=== PATIENT | male | born 1995 | race Caucasian/White ===

== ENCOUNTER 2017-01-21 16:53 | Emergency (ER) | payer OTHER ==
[~2017-01-21] VITALS: Ht 190.5 cm; Wt 82.9 kg
[2017-01-21] MEDS ORDERED: bp med PO (18:10)
[2017-01-21] MEDS ORDERED: ASPI-515 PO (18:10)
[2017-01-21 18:19] LABS: HEMATOCRIT 44.9 % (39.2-51.8); HEMOGLOBIN 15.4 g/dL (13.7-18.0); WHITE BLOOD COUNT 5.2 x10^3/uL (3.4-10)
[2017-01-21 18:29] LABS: BLOOD UREA NITROGEN 20 mg/dL (7-18)
[2017-01-21] MEDS ORDERED: OMNIPAQUE 350 MG/ML, 150 ML BOTTLE ONE (19:48)
[2017-01-21 20:13] VITALS: BP 129/72
== END 2017-01-21 20:43 | disposition home or self-care (01) ==
LOC: ED 18:11
DX: R51 Headache (principal)
CPT/HCPCS: 36415; 70496; 70498; 71275; 80048; 82040; 85025; 85610; 85730; 93005; 99285; Q9967

== ENCOUNTER 2017-04-11 11:12 | Inpatient (IN) | payer OTHER ==
[2017-04-08 14:32] LABS: HEMATOCRIT 47.8 % (39.2-51.8); HEMOGLOBIN 16.9 g/dL (13.7-18.0); WHITE BLOOD COUNT 4.4 x10^3/uL (3.4-10)
[2017-04-08 14:43] LABS: ASPARTATE AMINO TRANSFERASE 15 U/L (15-37); BLOOD UREA NITROGEN 18 mg/dL (7-18)
[~2017-04-11] VITALS: Ht 190.5 cm; Wt 84.3 kg
[~2017-04-11 11:12] MED LIST: ASPI-515 PO; LISI2.5T PO; METO25TA35 PO; MULT-224 PO; bp med PO
[2017-04-11 12:40] VITALS: BP 117/76
[2017-04-11] MEDS ORDERED: CEFUROXIME 1.5 GM in SODIUM CHLORIDE 0.9% 50 ML IVPB PRN (13:00)
[2017-04-11] MEDS ORDERED: PHENYLEPHRINE 10 MG in SODIUM CHLORIDE 0.9% 249 ML IV PRN (13:00)
[2017-04-11] MEDS ORDERED: MANNITOL PMX 20% 500 ML IVPB PRN (13:00)
[2017-04-11] MEDS ORDERED: VANCOMYCIN 1,250 MG in SODIUM CHLORIDE 0.9% 250 ML IV PRN (13:00)
[2017-04-11] MEDS ORDERED: DEXMEDETOMIDINE 200 MCG in SODIUM CHLORIDE 0.9% 48 ML IV SCH (13:00)
[2017-04-11] MEDS ORDERED: ALBUMIN HUMAN 5% 500 ML IV PRN (13:00)
[2017-04-11] MEDS ORDERED: EPINEPHRINE 2 MG in SODIUM CHLORIDE 0.9% 248 ML IV SCH (13:00)
[2017-04-11] MEDS ORDERED: POTASSIUM CHLORIDE 80 MEQ, SODIUM BICARBONATE 8.4% 10 MEQ, MAGNESIUM SULFATE 0.5 GM, LI... IV PRN (13:00)
[2017-04-11] MEDS ORDERED: REGULAR INSULIN 62.5 UNITS in SODIUM CHLORIDE 0.9% 249.375 ML IV PRN (13:00)
[2017-04-11] MEDS ORDERED: BACITRACIN 50,000 UNIT ONE (13:11)
[2017-04-11] MEDS ORDERED: PAPAVERINE 30 MG/ML, 2ML ONE (13:11)
[2017-04-11] MEDS ORDERED: HEPARIN 1,000 UNITS/ML, 30ML ONE (13:12)
[2017-04-11] MEDS ORDERED: THROMBIN 5,000 UNIT VIAL TP ONE ×2 (13:13→19:02)
[2017-04-11] MEDS ORDERED: FENTANYL PF 1000 MCG/20ML ONE (13:36)
[2017-04-11] MEDS ORDERED: MIDAZOLAM 10MG/2 ML ONE (13:36)
[2017-04-11] MEDS ORDERED: PROPOFOL 10 MG/ML, 20ML ONE ×2 (14:02→15:47)
[2017-04-11] MEDS ORDERED: MIDAZOLAM 1 MG/ML, 5ML ONE (14:02)
[2017-04-11] MEDS ORDERED: ROCURONIUM 10 MG/ML,10ML ONE ×2 (14:02→15:47)
[2017-04-11] MEDS ORDERED: FENTANYL PF 250 MCG/5ML ONE (14:02)
[2017-04-11] MEDS ORDERED: HEPARIN 1,000 UNITS/ML, 10ML ONE ×2 (17:27)
[2017-04-11] MEDS ORDERED: CALCIUM CHLORIDE 10%, 10ML SYR ONE (18:55)
[2017-04-11] MEDS ORDERED: PROPOFOL 100 ML IV PRN (20:23)
[2017-04-11] MEDS ORDERED: PROPOFOL 100 ML IV ONE (20:26)
[2017-04-11] MEDS ORDERED: SENNA/DOCUSATE TABLET NG PRN (20:30)
[2017-04-11] MEDS ORDERED: LIDOCAINE-MPF 1%, 2ML ENDO PRN (20:30)
[2017-04-11] MEDS ORDERED: SENNOSIDES 8.8 MG/5 ML ORAL SOL NG PRN (20:30)
[2017-04-11] MEDS ORDERED: PHARMACY MAY ADJ FOR RENAL FX MC SCH (20:30)
[2017-04-11] MEDS ORDERED: LACTULOSE 20 GM/30 ML UDC NG PRN (20:30)
[2017-04-11] MEDS ORDERED: MIDAZOLAM 1 MG/ML, 2ML IVPush PRN ×2 (20:30→21:30)
[2017-04-11] MEDS ORDERED: BISACODYL 10 MG SUPP PR PRN (20:30)
[2017-04-11] MEDS: FAMOTIDINE 20 MG/2 ML IV SCH (20:58)
[2017-04-11 21:18] LABS: ABG COLLECTION SITE ARTERIAL LINE
[2017-04-11] MEDS: D5%-LACTATED RINGERS 1,000 ML IV SCH (21:29)
[2017-04-11] MEDS: FENTANYL PF 100 MCG/2ML IVPush PRN ×3 (21:30→23:25)
[2017-04-11] MEDS ORDERED: hydrALAzine 20 MG/ML, 1ML IV PRN (21:30)
[2017-04-11] MEDS ORDERED: KSCALE TO 4.5 IV SCH (21:30)
[2017-04-11] MEDS ORDERED: ACETAMINOPHEN 650 MG SUPP PR PRN (21:30)
[2017-04-11 21:31] LABS: BLOOD UREA NITROGEN 19 mg/dL (7-18)
[2017-04-11 21:41] LABS: HEMATOCRIT 32.2 % (39.2-51.8); HEMOGLOBIN 11.4 g/dL (13.7-18.0)
[2017-04-11] MEDS: CEFAZOLIN PMX 1GM/50ML 50 ML IV SCH (21:52)
[2017-04-11] MEDS ORDERED: LACTATED RINGERS 500 ML IVBOLUS ONE (22:30)
[2017-04-11] MEDS: ALBUTEROL/IPRATROPIUM 2.5MG/0.5MG, 3 ML INLINE SCH (22:53)
[2017-04-12] MEDS ORDERED: LACTATED RINGERS 1,000 ML IVBOLUS ONE
[2017-04-12] MEDS: FENTANYL PF 100 MCG/2ML IVPush PRN ×11 (00:57→22:18)
[2017-04-12] MEDS: ALBUTEROL/IPRATROPIUM 2.5MG/0.5MG, 3 ML INLINE SCH ×3 (02:38→11:00)
[2017-04-12] MEDS: ONDANSETRON 2MG/ML, 2ML IVPush PRN ×3 (03:16→13:31)
[2017-04-12] MEDS: morphine SULFATE 10 MG/ML, 1ML IVPush PRN ×4 (03:16→12:46)
[2017-04-12 03:32] LABS: HEMATOCRIT 28.6 % (39.2-51.8); HEMOGLOBIN 10.2 g/dL (13.7-18.0); WHITE BLOOD COUNT 9.1 x10^3/uL (3.4-10)
[2017-04-12 03:34] LABS: ABG COLLECTION SITE ARTERIAL LINE
[2017-04-12 03:44] LABS: ASPARTATE AMINO TRANSFERASE 20 U/L (15-37); BLOOD UREA NITROGEN 16 mg/dL (7-18)
[2017-04-12 04:00] VITALS: BP 121/70
[2017-04-12] MEDS: KSCALE TO 4.5 IV SCH ×3 (04:00→15:30)
[2017-04-12] MEDS: CEFAZOLIN PMX 1GM/50ML 50 ML IV SCH (05:26)
[2017-04-12] MEDS ORDERED: MAGNESIUM SULFATE PMX 4GM/100M 100 ML IV ONE (05:30)
[2017-04-12] MEDS ORDERED: FAMOTIDINE 20 MG TABLET PO SCH (09:00)
[2017-04-12] MEDS ORDERED: FAMOTIDINE 20 MG/2 ML IVPush SCH (09:00)
[2017-04-12] MEDS: ENOXAPARIN 30 MG/0.3 ML SQ SCH ×2 (09:58→22:09)
[2017-04-12] MEDS: FAMOTIDINE 20 MG/2 ML IV SCH ×2 (09:59→20:21)
[2017-04-12] MEDS: D5%-LACTATED RINGERS 1,000 ML IV SCH ×2 (13:20→23:46)
[2017-04-12] MEDS: OXYcodone/APAP 5/325MG TABLET PO PRN ×3 (14:00→22:18)
[2017-04-12] MEDS ORDERED: ALBUTEROL SULFATE 2.5 MG/3 ML NPPB PRN (18:00)
[2017-04-12] MEDS: LISINOPRIL 5 MG TABLET PO SCH (18:01)
[2017-04-13] MEDS: FENTANYL PF 100 MCG/2ML IVPush PRN ×8 (02:07→20:58)
[2017-04-13] MEDS: OXYcodone/APAP 5/325MG TABLET PO PRN ×6 (02:10→22:07)
[2017-04-13] MEDS: ONDANSETRON 2MG/ML, 2ML IVPush PRN ×4 (02:38→22:34)
[2017-04-13 04:00] VITALS: BP 122/53
[2017-04-13] MEDS: morphine SULFATE 10 MG/ML, 1ML IVPush PRN ×2 (04:24→09:46)
[2017-04-13 04:40] LABS: HEMATOCRIT 28.2 % (39.2-51.8); WHITE BLOOD COUNT 7.8 x10^3/uL (3.4-10)
[2017-04-13 04:41] LABS: ABG COLLECTION SITE LEFT BRACHIAL
[2017-04-13 04:49] LABS: BLOOD UREA NITROGEN 8 mg/dL (7-18)
[2017-04-13] MEDS: FAMOTIDINE 20 MG/2 ML IV SCH (08:30)
[2017-04-13] MEDS: LISINOPRIL 5 MG TABLET PO SCH (10:07)
[2017-04-13] MEDS: ENOXAPARIN 30 MG/0.3 ML SQ SCH ×2 (10:07→22:08)
[2017-04-13] MEDS: FAMOTIDINE 20 MG TABLET PO SCH (10:08)
[2017-04-14] MEDS: OXYcodone/APAP 5/325MG TABLET PO PRN ×5 (02:06→21:59)
[2017-04-14] MEDS: FENTANYL PF 100 MCG/2ML IVPush PRN ×2 (02:31→04:41)
[2017-04-14 04:00] VITALS: BP 109/50
[2017-04-14 04:31] LABS: ABG COLLECTION SITE LEFT BRACHIAL
[2017-04-14] MEDS: ONDANSETRON 2MG/ML, 2ML IVPush PRN ×3 (04:41→12:43)
[2017-04-14 04:44] LABS: BLOOD UREA NITROGEN 7 mg/dL (7-18)
[2017-04-14 04:54] LABS: HEMATOCRIT 25.1 % (39.2-51.8); WHITE BLOOD COUNT 6.2 x10^3/uL (3.4-10)
[2017-04-14] MEDS: LISINOPRIL 5 MG TABLET PO SCH (08:17)
[2017-04-14] MEDS: FAMOTIDINE 20 MG TABLET PO SCH (08:17)
[2017-04-14] MEDS: ENOXAPARIN 30 MG/0.3 ML SQ SCH ×2 (08:17→20:44)
[2017-04-14] MEDS: KETOROLAC 30 MG/1 ML IV SCH ×2 (13:39→19:33)
[2017-04-14 16:47] VITALS: BP 115/68
[2017-04-14 20:32] VITALS: BP 100/59
[2017-04-14] MEDS: ONDANSETRON 2MG/ML, 2ML IV PRN (20:44)
[2017-04-14] MEDS: SODIUM CHLORIDE FLUSH 10ML SYR IVF SCH (20:44)
[2017-04-14] MEDS ORDERED: morphine SULFATE 10 MG/ML, 1ML IVPush PRN (23:30)
[2017-04-15] MEDS: KETOROLAC 30 MG/1 ML IV SCH ×4 (02:44→19:55)
[2017-04-15 02:54] VITALS: BP 108/64
[2017-04-15 04:59] LABS: HEMATOCRIT 24.3 % (39.2-51.8); HEMOGLOBIN 8.7 g/dL (13.7-18.0); WHITE BLOOD COUNT 4.1 x10^3/uL (3.4-10)
[2017-04-15 05:06] LABS: BLOOD UREA NITROGEN 7 mg/dL (7-18)
[2017-04-15 08:08] VITALS: BP 107/67
[2017-04-15] MEDS: ENOXAPARIN 30 MG/0.3 ML SQ SCH ×2 (08:36→22:36)
[2017-04-15] MEDS: CLOPIDOGREL 75 MG TABLET PO SCH (08:36)
[2017-04-15] MEDS: SODIUM CHLORIDE FLUSH 10ML SYR IVF SCH ×2 (08:36→22:35)
[2017-04-15] MEDS: HYDROcodone/APAP 5/325 TABLET PO PRN ×5 (08:44→22:34)
[2017-04-15] MEDS: ONDANSETRON 2MG/ML, 2ML IV PRN ×2 (08:44→14:05)
[2017-04-15 13:19] VITALS: BP 108/66
[2017-04-15] MEDS: PROMETHAZINE 25MG TABLET PO PRN (18:08)
[2017-04-15 19:40] VITALS: BP 117/71
[2017-04-16] MEDS: KETOROLAC 30 MG/1 ML IV SCH ×2 (02:03→08:34)
[2017-04-16 02:11] VITALS: BP 119/72
[2017-04-16 05:45] LABS: BLOOD UREA NITROGEN 10 mg/dL (7-18)
[2017-04-16 05:49] LABS: HEMATOCRIT 25.1 % (39.2-51.8)
[2017-04-16 08:27] VITALS: BP 119/73
[2017-04-16] MEDS: SODIUM CHLORIDE FLUSH 10ML SYR IVF SCH (08:34)
[2017-04-16] MEDS: CLOPIDOGREL 75 MG TABLET PO SCH (08:34)
[2017-04-16] MEDS: PROMETHAZINE 25MG TABLET PO PRN (08:34)
[2017-04-16] MEDS: HYDROcodone/APAP 5/325 TABLET PO PRN (08:34)
[2017-04-16] MEDS: ENOXAPARIN 30 MG/0.3 ML SQ SCH (09:38)
[2017-04-16] MEDS ORDERED: FLU VACC QS2017-18 (36MOS+) UP/PF 0.5 ML IM-VACC ONE (10:00)
[2017-04-16] MEDS ORDERED: HYDR-3240 PO (10:40)
[2017-04-16] MEDS ORDERED: PROM25SU34 PO (10:41)
[2017-04-16] MEDS ORDERED: CLOP75TA52 PO (10:42)
== END 2017-04-16 10:56 | disposition home or self-care (01) | DRG 270 ==
LOC: 5SO 11:12 → CCU 17:01 → 5SO 04-14 15:52 → DCLOUNGE 04-16 10:35
PROVIDERS: ADMIT Surgery Vascular Surgery; ATTEND Surgery Vascular Surgery
PROC: 03PY07Z Removal of Autologous Tissue Substitute from Upper Artery, Open Approach (ICD-10-PCS; 2017-04-11)
PROC: 06BQ0ZZ Excision of Left Saphenous Vein, Open Approach (ICD-10-PCS; 2017-04-11)
PROC: 5A1935Z Respiratory Ventilation, Less than 24 Consecutive Hours (ICD-10-PCS; 2017-04-11)
PROC: 0BH17EZ Insertion of Endotracheal Airway into Trachea, Via Natural or Artificial Opening (ICD-10-PCS; 2017-04-11)
PROC: 06HM33Z Insertion of Infusion Device into Right Femoral Vein, Percutaneous Approach (ICD-10-PCS; 2017-04-11)
PROC: 021 Heart and Great Vessels, Bypass (ICD-10-PCS; principal; 2017-04-11 13:00)
DX: T82.858A Stenosis of other vascular prosthetic devices, implants and grafts, initial encounter (principal); S25.10 Unspecified injury of innominate or subclavian artery; I65.29 Occlusion and stenosis of unspecified carotid artery; F32.9 Major depressive disorder, single episode, unspecified; G47.30 Sleep apnea, unspecified; R06.89 Other abnormalities of breathing; Y83.2 Surgical operation with anastomosis, bypass or graft as the cause of abnormal reaction of the patient, or of later complication, without mention of misadventure at the time of the procedure; Z82.49 Family history of ischemic heart disease and other diseases of the circulatory system; Y92.89 Other specified places as the place of occurrence of the external cause; Z23 Encounter for immunization
CPT/HCPCS: 36415; 36600; 71010; 80048; 80053; 82330; 82803; 82947; 83735; 84100; 84132; 84295; 84478; 85014; 85025; 85347; 85610; 85730; 86850; 86900; 86923; 87070; 87081; 87205; 87324; 90686; 93005; 94002; 94003; 94150; 94640; 95938; 95941; C1729; J0690; J0697; J1644; J1650; J1815; J1885; J2250; J2405; J2704; J3010; J3370; J3475; J3480; J3490; J7120; J7620; P9045; Q0169; C1760; J0171; J0360; J2270; J2370; J2440; J7050; J7121; S0028